=== PATIENT | male | born 1975 | race Asian ===

== ENCOUNTER 2022-04-29 19:42 | Emergency (ER) | payer OTHER ==
[~2022-04-29] VITALS: Ht 170.2 cm; Wt 70.3 kg
[2022-04-29] MEDS ORDERED: ACETAMINOPHEN ES 500 MG TABLET PO ONE (20:15)
[2022-04-29] MEDS ORDERED: IV NORMAL SALINE 1000 ML BAG IV ONE (20:15)
[2022-04-29] MEDS ORDERED: ONDANSETRON 4 MG/2 ML VIAL IV ONE (20:15)
[2022-04-29] MEDS ORDERED: HYDROCODONE/APAP 10-325 MG TABLET PO ONE (20:15)
[2022-04-29] MEDS ORDERED: LORAZEPAM 2 MG/1 ML VIAL IV ONE (20:30)
[2022-04-29] MEDS ORDERED: AZITHROMYCIN IV 500 MG in IV DEXTROSE 5% 250 ML IV ONE (20:30)
[2022-04-29 20:36] LABS: HEMATOCRIT 44.2 % (36.7-47.1); MEAN CORPUSCULAR HEMOGLOBIN 30.7 uug (23.8-33.4); MEAN CORPUSCULAR VOLUME 89.9 fL (73.0-96.2); PLATELET COUNT (AUTO) 217 K/uL (152-348)
[2022-04-29 20:46] LABS: CARBON DIOXIDE 26 mmol/L (21-32); CHLORIDE 100 mmol/L (98-107); CREATININE 1.1 mg/dL (0.6-1.3); GLUCOSE 149 mg/dL (74-106); POTASSIUM 4.4 mmol/L (3.5-5.1); UREA NITROGEN, BLOOD 12 mg/dL (7-18)
[2022-04-29 20:59] LABS: ALANINE AMINOTRANSFERASE 58 U/L (16-63); ALKALINE PHOSPHATASE 59 U/L (50-136); ASPARTATE AMINOTRANSFERASE 25 U/L (15-37); BILIRUBIN,DIRECT 0.2 mg/dL (0.0-0.2); BILIRUBIN,TOTAL 0.3 mg/dL (0.2-1.0); TOTAL PROTEIN, SERUM 8.1 g/dL (6.4-8.2)
[2022-04-29 21:49] LABS: *AMPHETAMINE, URINE NEGATIVE (NEGATIVE); *CANNABINOID, URINE NEGATIVE (NEGATIVE); *COCCAINE, URINE NEGATIVE (NEGATIVE); *OPIATE, URINE NEGATIVE (NEGATIVE); *PHENCYCLIDINE SCREEN,URINE NEGATIVE (NEGATIVE)
[2022-04-29] MEDS ORDERED: IOHEXOL 350 100 ML INFUS..BTL ONE ×2 (21:52→22:34)
[2022-04-29] MEDS ORDERED: SWABABLE VALVE TRANSFER SET EA MC ONE (21:53)
[2022-04-29] MEDS ORDERED: IV NORMAL SALINE 250 ML IV ONE (21:53)
--- NOTE | 2022-04-29 22:13 | NUR ---
1) Patient leaving for CT Angio. 2) Checklist completed. 3) Consent completed. 4) Patient clinically stable at the time of this report - no sign on distress. 5) Leaving ER in a wheelchair.
[2022-04-29] MEDS ORDERED: ACETAMINOPHEN ES 500 MG TABLET ONE (23:22)
[2022-04-29] MEDS ORDERED: ONDANSETRON 4 MG/2 ML VIAL ONE (23:22)
[2022-04-29] MEDS ORDERED: HYDROCODONE/APAP 10-325 MG TABLET ONE (23:23)
[2022-04-29] MEDS ORDERED: AZITHROMYCIN 500MG/ D5W 250ML IVPB **ER PYXIS ONLY IV ONE (23:23)
[2022-04-29] MEDS ORDERED: LORAZEPAM 2 MG/1 ML VIAL ONE (23:23)
[2022-04-29] MEDS ORDERED: AZIT250T13 PO (23:26)
[2022-04-29] MEDS ORDERED: LORA2TAB95 PO (23:26)
[2022-04-29] MEDS ORDERED: HYDR-4209 PO (23:26)
--- NOTE | 2022-04-30 00:36 | NUR ---
Patient discharged to home in stable condition. Written and verbal after care instructions given. Patient verbalizes understanding of instructions. Stressed follow up or return to ER for worsening s/s. Patient is a/ox4, NAD noted. Patient is able to walk with steady gait
[2022-04-30 00:38] VITALS: BP 129/76
== END 2022-04-30 00:38 | disposition home or self-care (01) ==
LOC: ER 19:48
DX: J20.9 Acute bronchitis, unspecified (principal); R00.0 Tachycardia, unspecified; Z20.822 Contact with and (suspected) exposure to COVID-19; F41.9 Anxiety disorder, unspecified; G47.00 Insomnia, unspecified; Z87.01 Personal history of pneumonia (recurrent)
CPT/HCPCS: 99285; 96365; 71275; 71045; 96375; 87426; 80076; 80048; 83880; 85025; 84145; 85379; 87400; 87040 ×2; 84484; 36415; 80307; J0456; J2060; J2405; Q9967; J7040; 93005; A4663; A9150